=== PATIENT | female | born 1990 | race Caucasian/White ===

== ENCOUNTER 2016-09-04 21:26 | Emergency (ER) | payer BC ==
[2016-09-04] MEDS ORDERED: Ketorolac INJ* 30 MG/ML 1 ML VIAL IV ONE (23:28)
[2016-09-04] MEDS ORDERED: Pantoprazole IV* 40 MG IV ONE (23:28)
[2016-09-04] MEDS ORDERED: NS 0.9% 1000 ML* 1,000 ML IV ONE (23:28)
[2016-09-04] MEDS ORDERED: Ondansetron INJ* 2 MG/ML VIAL IV ONE (23:28)
[2016-09-05 01:04] LABS: Hematocrit 41 % (35-47); Hemoglobin 13.9 g/dl (12.0-16.0); Mean Corpuscular HGB Conc 34 g/dl (31-36); Mean Corpuscular Hemoglobin 32 pg (27-31); Mean Corpuscular Volume 92 fL (80-97); Mean Platelet Volume 11 um3 (7.4-10.4); Red Blood Count 4.42 10^6/ul (4.0-5.4); Red Cell Distribution Width 12 % (10.5-15); White Blood Count 7.2 10^3/ul (3.5-10.8)
[2016-09-05 01:06] LABS: Urine Bilirubin Negative (Negative); Urine Glucose Negative (Negative); Urine Nitrite Negative (Negative)
[2016-09-05 01:20] LABS: ALT 10 U/L (7-52); AST 14 U/L (13-39); Albumin 3.9 g/dL (3.2-5.2); Alkaline Phosphatase 44 U/L (34-104); Amylase 27 U/L (29-103); Anion Gap 8 mmol/L (2-11); Blood Urea Nitrogen 6 mg/dL (6-24); C Reactive Protein < 1.00 mg/L (< 5.00); CO2 Carbon Dioxide 24 mmol/L (22-32); Chloride 105 mmol/L (101-111); EGFR African American 136.8 (>60); EGFR Non-African American 106.4 (>60); Globulin 2.6 g/dL (2-4); Glucose 99 mg/dL (70-100); Lipase 12 U/L (11.0-82.0); Potassium 3.4 mmol/L (3.5-5.0); Sodium 137 mmol/L (133-145); Total Protein 6.5 g/dL (6.4-8.9)
[2016-09-05 05:38] VITALS: BP 85/40
--- NOTE | 2016-09-05 07:52 | RAD ---
HISTORY: Right upper quadrant pain, nausea COMPARISONS: October 18, 2014 TECHNIQUE: Multiple transverse and longitudinal ultrasound images were obtained of the right upper quadrant of the abdomen using grayscale and color Doppler imaging. FINDINGS: LIVER: The liver is normal in shape, size, contour, and echogenicity. There are no focal parenchymal masses. There is normal hepatopedal flow of the portal vein on Doppler imaging. BILIARY TREE: There is no intrahepatic or extrahepatic biliary dilatation. The common duct measures 0.3 cm. GALLBLADDER: The gallbladder is incompletely distended but is grossly normal. There is no appreciable gallbladder wall thickening accounting for the degree of distention. There are no stones, pericholecystic fluid, or sonographic Ascencio sign. PANCREAS: The head of the pancreas is unremarkable. The tail of the pancreas is not well visualized secondary to overlying bowel gas. RIGHT KIDNEY: The right kidney is normal in shape, size, contour, and echogenicity. There is no hydronephrosis or nephrolithiasis. The right kidney measures 12 x 4 point 4 x 4 0.7 cm. AORTA AND IVC: The aorta and IVC are unremarkable. FLUID: There are no pleural effusions. There is no free fluid within the hepatorenal recess. OTHER FINDINGS: None. IMPRESSION: NO ACUTE SONOGRAPHIC PATHOLOGY OF THE VISUALIZED PORTION OF THE ABDOMEN
--- NOTE | 2016-09-10 21:16 | ED ---
Eligio, DoctorEva, scribed for Maryellen Betts MD on 09/04/16 at 2325 . Abdominal Pain/Female - HPI Summary HPI Summary: 26 year old female arrived to [facility] c/o pain in the right upper quadrant for the past four days, which worsened today. Her pain was described as a "dull, aching" sensation; she currently rates her pain as 6/10. She has also been experiencing nausea, chest tightness and chills; she denies any diaphoresis, urinary symptoms, vomiting, or diarrhea. Her pain is exacerbated after eating a meal. Her LMP began on 08/27/16. She has never experienced similar symptoms in the past; no other pertinent PMHx. Pt took ibuprofen today at 1130. - History of Current Complaint Chief Complaint: EDAbdPain Stated Complaint: ABD PAIN Time Seen by Provider: 09/04/16 23:10 Hx Obtained From: Patient Hx Last Menstrual Period: 08/27/16 ?: No Onset/Duration: Gradual Onset, Lasting Days, Still Present, Worse Since - worse today Timing: Constant Severity Initially: Moderate Severity Currently: Moderate Pain Intensity: 6 Pain Scale Used: 0-10 Numeric Location: Discrete At: RUQ Radiates: No Character: Dull Aggravating Factor(s): Nothing Alleviating Factor(s): Nothing Associated Signs and Symptoms: Positive: Chest Pain, Nausea, Other: - chills. Negative: Diaphoresis, Fever, Urinary Symptoms, Vomiting, Diarrhea Allergies/Adverse Reactions: Allergies Allergy/AdvReac Type Severity Reaction Status Date / Time [facility] Allergy Severe Hives Verified 09/04/16 21:37 Shellfish Allergy Allergy Severe Anaphylatic Verified 09/04/16 21:37 Shock Amoxicillin Allergy Unknown Rash Verified 09/04/16 21:37 Doxycycline Allergy Anaphylatic Verified 09/04/16 21:37 Shock PMH/Surg Hx/FS Hx/Imm Hx Previously Healthy: No Endocrine/Hematology History: Denies: Hx Diabetes, Hx Thyroid Disease Cardiovascular History: Denies: Hx Hypertension, Hx Pacemaker/ICD Respiratory History: Denies: Hx Asthma, Hx Chronic Obstructive Pulmonary Disease (COPD) GI History: Denies: Hx Ulcer History: Reports: Hx Kidney Stones, Hx Renal Disease - hx of calculi, renal infections, UTIs (started 6-14), Other Problems/Disorders - UTI Sensory History: Reports: Hx Contacts or Glasses Denies: Hx Hearing Aid Opthamlomology History: Reports: Hx Contacts or Glasses Psychiatric History: Reports: Hx Anxiety, Hx Post Traumatic Stress Disorder Denies: Hx Panic Disorder - Surgical History Surgery Procedure, Year, and Place: leg surgery Infectious Disease History: No Infectious Disease History: Denies: Hx Clostridium Difficile, Hx Hepatitis, Hx Human Immunodeficiency Virus (HIV), Hx of Known/Suspected MRSA, Hx Shingles, Hx Tuberculosis, Hx Known/ Suspected VRE, Hx Known/Suspected VRSA, History Other Infectious Disease, Traveled Outside the [place] in Last 30 Days - Family History Known Family History: Positive: Hypertension, Diabetes, Other - arthritis, Chon's Dz, lupus - Social History Occupation: Employed Full-time Lives: With Family - with da Alcohol Use: Rare Substance Use Type: Reports: Marijuana Substance Use Comment - Amount & Last Used: every night for headaches Hx Tobacco Use: Yes Smoking Status (MU): Current Every Day Smoker Type: Cigarettes Amount Used/How Often: 5 cig /day Have You Smoked in the Last Year: Yes Review of Systems Positive: Chills. Negative: Fever, Skin Diaphoresis Positive: Chest Pain Positive: Abdominal Pain, Nausea. Negative: Vomiting, Diarrhea Negative: dysuria, hematuria, urgency Neurological: Negative Psychological: Normal All Other Systems Reviewed And Are Negative: Yes Physical Exam Triage Information Reviewed: Yes Vital Signs On Initial Exam: Initial Vitals Temp Pulse Resp BP Pulse Ox 99.4 F 113 16 124/75 100 09/04/16 21:33 09/04/16 21:33 09/04/16 21:33 09/04/16 21:33 09/04/16 21:33 Vital Signs Reviewed: Yes Appearance: Positive: Well-Nourished, Ill-Appearing, Pain Distress Skin: Positive: Warm, Skin Color Reflects Adequate Perfusion, Dry Head/Face: Positive: Normal Head/Face Inspection Eyes: Positive: Conjunctiva Clear ENT: Positive: Normal ENT inspection Neck: Positive: Supple, Nontender Respiratory/Lung Sounds: Positive: Clear to Auscultation, Breath Sounds Present. Negative: Rales, Rhonchi, Wheezes Cardiovascular: Positive: RRR, Pulses are Symmetrical in both Upper and Lower Extremities. Negative: Murmur, Rub Abdomen Description: Positive: No Organomegaly, Soft. Negative: Nontender - RUQ tenderness, CVA Tenderness (R), CVA Tenderness (L), Distended, Guarding, Hepatomegaly, McBurney's Point Tenderness, Peritoneal Signs, Splenomegaly Bowel Sounds: Positive: Present Musculoskeletal: Positive: Strength/ROM Intact Neurological: Positive: Sensory/Motor Intact, Alert, Oriented to Person Place, Time Psychiatric: Positive: Affect/Mood Appropriate - [place] Coma Scale Coma Scale Total: 15 Diagnostics - Vital Signs Vital Signs Temp Pulse Resp BP Pulse Ox 09/04/16 22:19 77 99 09/04/16 22:17 99/54 09/04/16 21:33 99.4 F 113 16 124/75 100 - Laboratory Lab Results: Lab Results 09/04/16 09/04/16 09/04/16 Range/Units 00:55 00:55 00:55 WBC 7.2 (3.5-10.8) 10^3/ul RBC 4.42 (4.0-5.4) 10^6/ul Hgb 13.9 (12.0-16.0) g/dl Hct 41 (35-47) % MCV 92 (80-97) fL MCH 32 H (27-31) pg MCHC 34 (31-36) g/dl RDW 12 (10.5-15) % Plt Count 141 L (150-450) 10^3/ul MPV 11 H (7.4-10.4) um3 Neut % (Auto) 40.5 (38-83) % Lymph % (Auto) 47.6 H (25-47) % Young % (Auto) 8.9 (1-9) % Eos % (Auto) 2.1 (0-6) % Baso % (Auto) 0.9 (0-2) % Absolute Neuts (auto) 2.9 (1.5-7.7) 10^3/ul Absolute Lymphs (auto) 3.4 (1.0-4.8) 10^3/ul Absolute Monos (auto) 0.6 (0-0.8) 10^3/ul Absolute Eos (auto) 0.2 (0-0.6) 10^3/ul Absolute Basos (auto) 0.1 (0-0.2) 10^3/ul Absolute Nucleated RBC 0 10^3/ul Nucleated RBC % 0.1 Sodium 137 (133-145) mmol/L Potassium 3.4 L (3.5-5.0) mmol/L Chloride 105 (101-111) mmol/L Carbon Dioxide 24 (22-32) mmol/L Anion Gap 8 (2-11) mmol/L BUN 6 (6-24) mg/dL Creatinine 0.67 (0.51-0.95) mg/dL Est GFR ( Amer) 136.8 (>60) Est GFR (Non-Af Amer) 106.4 (>60) BUN/Creatinine Ratio 9.0 (8-20) Glucose 99 (70-100) mg/dL Calcium 9.0 (8.6-10.3) mg/dL Total Bilirubin 0.50 (0.2-1.0) mg/dL AST 14 (13-39) U/L ALT 10 (7-52) U/L Alkaline Phosphatase 44 (34-104) U/L C-Reactive Protein < 1.00 (< 5.00) mg/L Total Protein 6.5 (6.4-8.9) g/dL Albumin 3.9 (3.2-5.2) g/dL Globulin 2.6 (2-4) g/dL Albumin/Globulin Ratio 1.5 (1-3) Amylase 27 L (29-103) U/L Lipase 12 (11.0-82.0) U/L Beta HCG, Quant < 0.60 mIU/mL Urine Color Straw Urine Appearance Clear Urine pH 8.0 (5-9) Ur Specific [place] 1.004 L (1.010-1.030) Urine Protein Negative (Negative) Urine Ketones Negative (Negative) Urine Blood Negative (Negative) Urine Nitrate Negative (Negative) Urine Bilirubin Negative (Negative) Urine Urobilinogen Negative (Negative) Ur Leukocyte Esterase Negative (Negative) Urine Glucose Negative (Negative) Result Diagrams: 09/04/16 00:55 09/04/16 00:55 Lab Statement: Any lab studies that have been ordered have been reviewed, and results considered in the medical decision making process. - Ultrasound No standard instances Ultrasound Interpretation Completed By: Radiologist - Gallbladder US - Radiologist Impression: Normal Exam Re-Evaluation - Re-Evaluation First Eval Re-Evaluation Time: 05:20 Change: Improved Comment: Pain has improved, pt agrees to be discharged home Abdominal Pain Fem Course/Dx - Course Course Of Treatment: discussed neg ultrasound and further outpt workup of upper abd pain, including HIDA scan and possible endoscopy. - Diagnoses Provider Diagnoses: RUQ abdominal pain Discharge - Discharge Plan Condition: Stable Disposition: HOME Prescriptions: Pantoprazole TAB (NF) [Protonix TAB (NF)] 40 mg PO DAILY #30 tab Patient Education Materials: Biliary Colic (ED), Acute Abdominal Pain (ED), Epigastric Pain (ED) Referrals: Giovany Gant MD [Primary Care Provider] - 2 Days Additional Instructions: You RUQ ultrasound did not show gallstones, or any problem with your pancreas or your right kidney. Dr. Gant may want to schedule a HIDA scan to check the function of your gallbladder. And he may want to refer you to gastroenterology for an endoscopy. Avoid ibuprofen. You may take the pantoprazole as directed. In the ER you were given toradol 30mg injectable, zofran and pantoprazole with some relief. Return to the ER if you have any new or worsening symptoms. The documentation as recorded by the Doctor barroso Tahera accurately reflects the service I personally performed and the decisions made by me, Maryellen Betts MD.
== END 2016-09-05 05:35 | disposition home or self-care (01) ==
LOC: ED 21:26
DX: R10.11 Right upper quadrant pain (principal); R07.9 Chest pain, unspecified; R11.0 Nausea; F17.210 Nicotine dependence, cigarettes, uncomplicated
CPT/HCPCS: 36415; 76705; 80053; 81003; 82150; 83690; 84702; 85025; 86140; 96374; 96375; 99283; J1885; J2405